=== PATIENT | male | born 1965 | race Caucasian/White ===

== ENCOUNTER 2018-04-08 11:13 | Emergency (ER) | payer SELFPAY ==
[~2018-04-08] VITALS: Ht 180.3 cm; Wt 113.4 kg
[2018-04-08] MEDS ORDERED: Tobrex Ophth S2.5 ML OPH (11:29)
[2018-04-08] MEDS ORDERED: NAPROSYN500 MG PO (11:29)
== END 2018-04-08 11:50 | disposition home or self-care (01) ==
LOC: ED 11:13
DX: S05.02XA Injury of conjunctiva and corneal abrasion without foreign body, left eye, initial encounter (principal); M25.562 Pain in left knee; R03.0 Elevated blood-pressure reading, without diagnosis of hypertension; Z23 Encounter for immunization; Z91.040 Latex allergy status; X58.XXXA Exposure to other specified factors, initial encounter; Y93.89 Activity, other specified; Y92.89 Other specified places as the place of occurrence of the external cause; Y99.8 Other external cause status